=== PATIENT | male | born 1960 | race Caucasian/White ===

== ENCOUNTER 2019-04-02 19:52 | Emergency (ER) | payer BC ==
[~2019-04-02] VITALS: Ht 175.3 cm; Wt 79.5 kg
[2019-04-02 19:59] VITALS: Ht 175.3 cm; Wt 79.5 kg
[2019-04-02] MEDS ORDERED: ASPIRIN81 MG PO (20:00)
[2019-04-02 20:57] LABS: APPEARANCE CLEAR (CLEAR); BILIRUBIN NEGATIVE (NEGATIVE); COLOR YELLOW (YELLOW); GLUCOSE NEGATIVE (NEGATIVE); KETONE NEGATIVE (NEGATIVE); NITRITE NEGATIVE (NEGATIVE); PROTEIN NEGATIVE (NEGATIVE); SPECIFIC GRAVITY 1.015 (1.005-1.020); UROBILINOGEN NORMAL (NORMAL)
[2019-04-02 20:58] LABS: RED CELLS - URINE 25-50 /hpf (0-5); WHITE CELLS - URINE 0-5 /hpf (NEGATIVE)
[2019-04-02] MEDS ORDERED: DILAUDID4 MG PO (21:47)
[2019-04-02 22:00] VITALS: BP 130/77
== END 2019-04-02 21:57 | disposition home or self-care (01) ==
LOC: D.ER 19:52
PROVIDERS: Emergency Medicine
DX: N20.0 Calculus of kidney (principal)